=== PATIENT | female | born 1965 | race Caucasian/White ===

== ENCOUNTER 2017-05-24 18:56 | Inpatient (IN) | payer OTHER ==
[~2017-05-24] VITALS: Ht 160 cm; Wt 66.8 kg
[2017-05-24 19:27] VITALS: Ht 160 cm; Wt 66.8 kg
[2017-05-24 21:09] LABS: BASOPHIL % 0.1 % (0-2); PLATELET COUNT 170 x10^3mcL (130-400)
[2017-05-24 21:11] LABS: RED CELL DISTRIBUTION WIDTH 15.2 % (11.5-14.5)
[2017-05-24 21:12] LABS: microscopic required? YES; urine erythrocyte NEGATIVE (NEGATIVE)
[2017-05-24 21:17] LABS: UA SPECIFIC GRAVITY 1.020T (1.005-1.035)
[2017-05-24 21:20] LABS: AMPHETAMINE QUAL UR POSITIVE (NEG <=1000)
[2017-05-24 21:25] LABS: CALCIUM 8.5 mg/dL (8.5-10.1); CARBON DIOXIDE 24.4 mmol/L (21-32); CHLORIDE SERUM 92 mmol/L (98-107); CREATININE SERUM 0.7 mg/dL (0.6-1.0); GFR1 > 60 mL/min; GLUCOSE SERUM 136 mg/dL (74-106); POTASSIUM SERUM 3.3 mmol/L (3.5-5.1); SODIUM SERUM 129 mmol/L (136-145)
[2017-05-24 21:36] LABS: ALBUMIN 3.6 g/dL (3.4-5.0); ALKALINE PHOSPHATASE 70 U/L (46-116); ALT/SGPT 48 U/L (14-59); AMYLASE 33 U/L (25-115); AST/SGOT 49 U/L (15-37); BILIRUBIN TOTAL 0.3 mg/dL (0.20-1.00); CHOLESTEROL 115 mg/dL (<200); HDL CHOLESTEROL 65 mg/dL (40-60); LIPASE 146 IU/L (73-393); MAGNESIUM 1.9 mg/dL (1.8-2.4); T4(THYROXINE) 13.8 ug/dL (4.7-13.3); TOTAL PROTEIN, SERUM 7.6 g/dL (6.4-8.2)
[2017-05-24 23:51] VITALS: BP 121/73
[2017-05-25 00:05] VITALS: BP 121/73
[2017-05-25 04:21] LABS: PHOSPHOROUS 3.9 mg/dL (2.5-4.9)
[2017-05-25 04:28] LABS: T3 TOTAL 0.96 ng/mL
[2017-05-25 04:34] LABS: CHOLESTEROL/HDL RATIO 1.8
[2017-05-25 05:10] LABS: FREE T4 1.18 ng/dL (0.76-1.46)
[2017-05-25 05:11] LABS: FREE THYROXINE INDEX 3.3 ug/dL (1.4-4.5); T4(THYROXINE) 13.7 ug/dL (4.7-13.3)
[2017-05-25 06:17] VITALS: BP 126/82
[2017-05-25 07:27] LABS: BASOPHIL % 0.2 % (0-2); PLATELET COUNT 143 x10^3mcL (130-400)
[2017-05-25 07:33] LABS: RED CELL DISTRIBUTION WIDTH 14.9 % (11.5-14.5)
[2017-05-25 07:36] LABS: CALCIUM 8.6 mg/dL (8.5-10.1); CARBON DIOXIDE 25.7 mmol/L (21-32); CHLORIDE SERUM 106 mmol/L (98-107); CREATININE SERUM 0.5 mg/dL (0.6-1.0); GFR1 > 60 mL/min; GLUCOSE SERUM 177 mg/dL (74-106); POTASSIUM SERUM 4.6 mmol/L (3.5-5.1); SODIUM SERUM 140 mmol/L (136-145)
[2017-05-25 09:55] VITALS: BP 97/58
[2017-05-25 13:39] VITALS: BP 96/55
[2017-05-25 17:15] VITALS: BP 104/61
[2017-05-25 20:01] VITALS: BP 105/55
[2017-05-26 05:14] VITALS: BP 105/55
[2017-05-26] MEDS ORDERED: MEDDP PO (07:23)
[2017-05-26] MEDS ORDERED: LEVAQUIN750 MG PO (07:24)
[2017-05-26] MEDS ORDERED: AZITHROMYCIN250 M1 PO (07:30)
[2017-05-26] MEDS ORDERED: LAC PO (07:32)
[2017-05-26] MEDS ORDERED: ROBL PO (08:22)
[2017-05-26 08:48] VITALS: BP 105/55
[2017-05-26 08:58] VITALS: BP 104/51
[2017-05-26 12:55] VITALS: BP 125/71
== END 2017-05-26 15:48 | disposition home or self-care (01) | DRG 139 ==
LOC: ED 18:56 → DU 22:22
PROVIDERS: Emergency Medicine; Family Medicine
DX: J18.9 Pneumonia, unspecified organism (principal); N17.0 Acute kidney failure with tubular necrosis; J01.00 Acute maxillary sinusitis, unspecified; N39.0 Urinary tract infection, site not specified; E87.1 Hypo-osmolality and hyponatremia; E87.6 Hypokalemia; R74.0 Nonspecific elevation of levels of transaminase and lactic acid dehydrogenase [LDH]; F15.10 Other stimulant abuse, uncomplicated; F17.210 Nicotine dependence, cigarettes, uncomplicated; Z68.24 Body mass index [BMI] 24.0-24.9, adult
CPT/HCPCS: 82962; 83880; 84439; 87804; 99406; J0696; J1956; J2930; J7030; J7613; J7620; J7644; J8597